=== PATIENT | female | born 1980 | race African-American/Black ===

== ENCOUNTER 2019-12-10 02:29 | Inpatient (IN) | payer BC ==
[~2019-12-10] VITALS: Ht 165.1 cm; Wt 71.2 kg
[2019-12-10 02:34] VITALS: Ht 165.1 cm; Wt 71.2 kg
--- NOTE | 2019-12-10 02:39 | NUR ---
PATIENT DENIES ANY POSSIBILITY OF . REPORTS SHE IS UNABLE TO PROVIDE URINE SAMPLE AT THIS TIME. REPORTING 10/10 PAIN AND REQUESTING PAIN MEDICATION. PT EDUCATED ON ALL POSSIBLE RISKS ASSOCIATED WITH PAIN MEDICATION IF THERE IS A CHANCE OF , PATIENT VERBALIZED UNDERSTANDING AND WOULD STILL LIKE TO BE MEDICATED FOR PAIN.
--- NOTE | 2019-12-10 02:41 | NUR ---
PATIENT BROUGHT IN BY AMBULANCE TO ED WITH C/C OF LLQ PAIN AND FLANK PAIN X3 HOURS. PER MEDIC, PATIENT HAD "KIDNEY STONE SURGERY" ON 12/04/2019. 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 PT GRIMACING, REPORTING SEVERE PAIN. PT REPORTS NAUSEA, RELATED TO PAIN, DENIES VOMITING. PATIENT REPORTS SHE HAS A STENT IN URETHRA AND URINATES "REGULARLY". PT HAS NO OTHER MEDICAL COMPLAINTS AT THIS TIME. PT IS AAOX4, RESP E/U, NAD NOTED. MSE COMPLETED BY DR. WOO.
--- NOTE | 2019-12-10 02:54 | NUR ---
PATIENT MEDICATED PER MD ORDER. PT VERBALIZED UNDERSTANDING OF MEDICATION PRIOR TO ADMINISTRATION.
[2019-12-10 02:59] LABS: BASOPHIL % 0.6 % (0-2); PLATELET COUNT 287 x10^3mcL (130-400); RED CELL DISTRIBUTION WIDTH 14.1 % (11.5-14.5)
[2019-12-10 04:17] LABS: CALCIUM 9.1 mg/dL (8.5-10.1); CARBON DIOXIDE 25.6 mmol/L (21-32); CHLORIDE SERUM 105 mmol/L (98-107); CREATININE SERUM 0.8 mg/dL (0.6-1.0); GFR1 > 60 mL/min; GLUCOSE SERUM 97 mg/dL (74-106); SODIUM SERUM 140 mmol/L (136-145)
--- NOTE | 2019-12-10 04:18 | NUR ---
PT MEDICATED PER MD ORDER. PT VERBALIZED UNDERSTANDING OF MEDICATIONS PRIOR TO ADMINISTRATION. CALL LIGHT IN REACH.
[2019-12-10 04:21] LABS: ALKALINE PHOSPHATASE 54 U/L (46-116); ALT/SGPT 27 U/L (14-59); AST/SGOT 18 U/L (15-37); BILIRUBIN TOTAL 0.16 mg/dL (0.20-1.00); TOTAL PROTEIN, SERUM 7.3 g/dL (6.4-8.2)
[2019-12-10 04:22] LABS: ALBUMIN 3.2 g/dL (3.4-5.0)
[2019-12-10 04:48] LABS: UA SPECIFIC GRAVITY 1.025 (1.005-1.035); microscopic required? YES; urine erythrocyte 3+ (NEGATIVE)
--- NOTE | 2019-12-10 05:49 | NUR ---
ASSISTED PT TO URINATE IN BEDSIDE COMMODE. PT RESTING IN GURNEY. AWAKE, A&OX4, RESP E/U. CALL LIGHT IN REACH.
--- NOTE | 2019-12-10 05:51 | NUR ---
PT MEDICATED PER MD ORDERS. PT VERBALIZED UNDERSTANDING OF MEDICATION PRIOR TO ADMINISTRATION.
--- NOTE | 2019-12-10 06:01 | NUR ---
US AT BEDSIDE.
--- NOTE | 2019-12-10 06:51 | NUR ---
5AM BLOOD DRAWN AND WALKED OVER TO LAB. RECEPTED BY [facility].
--- NOTE | 2019-12-10 07:07 | NUR ---
ATTEMPTED TO CALL REPORT TO RAMONA GELLER, UNAVAILABLE AT THIS TIME. WILL ATTEMPT TO CALL BACK.
--- NOTE | 2019-12-10 07:20 | NUR ---
PT RECEIVED FROM ED, REPORT GIVEN BY YIMI BEVERLY. PT ARRIVED ALONE BY ERIC. PT IS AAOX4, MED SURG PT. DENIES C/P, PRESSURE AND PALPITATIONS. RESP EVEN AND UNLABORED. LUNG SOUNDS CTA. ON R/A. NO COUGH OR SOB. PT HAS C/O ABDOMINAL PAIN THAT RESOLVES WITH PAIN MEDICATION. ABDOMEN SOFT, NONTENDER, NONDISTENDED. BOWEL SOUNDS ACTIVE X 4 QUADS. DENIES N/V, DIARRHEA AND CONSTIPATION. PT HAS L SIDED URINARY STENT PLACED, VOIDS FREELY. SKIN CDI. DISNTAL PULSES MODERATE. SKIN WARM. NO EDEMA. IV CATH TO RAC AND RW. FLUSHED AND PATENT. PT DENIES PAIN AT THIS TIME. PT ORIENTED TO ROOM AND CALL LIGHT. BED IN LOWEST POSITION. CALL LIGHT WITHIN REACH. WILL CONTINUE TO MONITOR.
--- NOTE | 2019-12-10 07:29 | NUR ---
REPORT GIVEN TO YIMI GREENE TO ASSUME CARE OF PT.
--- NOTE | 2019-12-10 09:52 | NUR ---
LEVAQUIN IVPB STARTED. PT SLEEPING, EASILY AWAKENED BY VERBAL STIMULI. CALL LIGHT WITHIN REACH.
[2019-12-10 11:12] VITALS: BP 145/80
--- NOTE | 2019-12-10 11:16 | NUR ---
DR. BALBUENA MET WITH PT AND DISCUSSED POC. DR. BALBUENA STATED THAT THE PT HAS A SMALL CYST ON HER OVARY THAT SHOULD NO BE CAUSING TORSION AND 10/10 PAIN. PT MAY POSSIBLE BE EXPERIECING PAIN DUE TO KIDNEY STONES. DR. BALBUENA STATED HE WILL NOT NEED TO SURGERY. IF PAIN IS RELIEVED THE STONE MAY HAVE PASSED.
[2019-12-10 12:02] VITALS: BP 136/87
--- NOTE | 2019-12-10 12:51 | NUR ---
DR. STILES MET WITH PT AND DISCUSSED POC. DR. STILES SUSPECTS THE URINARY STENT AND POSSIBLE THE CYST ON THE PT'S OVARY IN PROTRUDING ON THE BLADDER, EITHER MAY BE CAUSING THE PAIN. PT AGREED WITH POC.
--- NOTE | 2019-12-10 16:03 | NUR ---
PT RESTING WITH NO DISTRESS NOTED. RESP EVEN AND UNLABORED. AWAKENS EASILY TO VERBAL STIMULI. CALL LIGHT WITHIN REACH.
--- NOTE | 2019-12-10 17:00 | NUR ---
[facility]CO PO PRN GIVEN ORDERED FOR SHARP PAIN 08/07. EXTRA FLUIDS GIVEN. PT REPOSITIONED FOR COMFORT. CALL LIGHT WITHIN REACH.
[2019-12-10 17:09] VITALS: BP 125/73
--- NOTE | 2019-12-10 18:59 | NUR ---
RESP EVEN AND UNLABORED. NO DISTRESS NOTED. DENIES PAIN. IV CATH PATENT TO RAC. SITE WNL. WILL ENDORSE ALL CARE TO NOC RN.
--- NOTE | 2019-12-10 19:59 | NUR ---
pT aoX4 LAYING IN BED COMFORTABLY NO COMPLAINTS AT THIS TIME CALL LIGHT WITHIN REACH EDUCATED PT TO CALL RN IF PT IS IN PAIN WILL CONTINUE TO MONITOR PT
[2019-12-10 20:56] VITALS: BP 110/75
[2019-12-11 04:48] VITALS: BP 100/61
--- NOTE | 2019-12-11 06:16 | NUR ---
SLEPT WELL THROUGHOUT THE NIGHT VSS PRN MORPHINE X1 GIVEN WITH GOOD EFFECT NO OTHER COMPLAINTS AT THIS TIME WILL ENDORSE TO ONCOMING rn
[2019-12-11 07:40] VITALS: BP 117/76
--- NOTE | 2019-12-11 10:33 | NUR ---
PATIENT IS IN BED RESTING. PATIENT IS ALERT AND ORIENTED X4. PATIENT DENIES DISTRESS AND SHORTNESS OF BREATH. PATIENT IS HAVING PAIN IN THE AREA OF HER STENT PLACEMENT OF 6/10. PATIENT REFUSED PAIN MEDICATION AND STATED SHE WILLD EAL WITH THE PAIN. INSTRUCTED PATIENT ON THE OPTION OF PAIN MEDICATION AND TO CALL RN IF SHE WOULD LIKE PAIN MEDICATION. AM CARE NEEDS MET. PATIENT TOLERATED MEDICATIONS. BED IN LOW POSITION. CALL LIGHT IN REACH . TWO SIDE RAILS UP. WILL CONTINUE TO MONITOR PATIENT THROUGHOUT SHIFT.
[2019-12-11 12:07] VITALS: BP 128/75
[2019-12-11 13:07] VITALS: BP 128/75
--- NOTE | 2019-12-11 15:29 | NUR ---
DR. STILES'S OFFICE CALLED REGARDING PT'S CONCERN ABOUT BEING D/C SINCE STENTS HAD TO BE REMOVED. PER MD'S OFFICE PT TO F/U WITH OWN UROLOGIST AND SCHEDULE REMOVAL OF STENTS THROUGHT THEM. ATTENDING NURSE MADE AWARE.
--- NOTE | 2019-12-11 15:52 | NUR ---
Initial Nutrition Assessment: TERESA CONNORS 39F HR Dx: Abdominal pain r/o torsion PMHx: hydronephrosis, nephrolithiasis PSHx: Stent placement Labs: (12/09) total bilirubin 0.16L, Albumin 3.2L Meds: [place], Morphine, levaquin Diet: Regular PO intake since admission: No entry Ht: 165.1cm/65in Wt: 71.214kg/156.7lbs BMI: 26.1 Bed scale: 76.4kg/168.2lbs IBW: 56.82kg/125lbs %IBW: 125.3% ABW: 60kg UBW: 150lbs two weeks Age: 39 Food Allergies: NKFA per pt Edema: none noted Last BM: 12/09 Skin: no open wound noted Dell: 22 Per H and P (12/09), pt is a 39 yo female h/o nephrolithiasis s/p stent 6 days ago done at [facility]. She presented to the ED with intractable l lower quad pain, feels different from the kidney stone pain. She was seen and evaluated at the ED, US done showing adnexal cyst/ mass. She also had positive UA. With pain persisting, intractable she was admitted for further treatments. Pt was admitted with dx: Acute abd/pelvic pain, UTI, Nephrolithiasis, post stent, pelvic mass, ovarian cyst, torsion RD Note (12/11/2019) During visit, pt was sitting in bed and was on her laptop. Pt denied GI distress or chewing/swallowing difficulty. Pt reported fair appetite, but lunch tray was seen 20% finished per observation. Additionally, pt mentioned that her usual body weight was 150lbs two weeks ago, and her weight had been stable. Recommended ONS to aid PO intake, and pt was agreeable. Problem with: N/V/D/C: none per pt Problems with: Chewing: Swallowing: none per pt Current appetite: fair, but not as well per pt Recent wt change: none noted %wt change: none noted Height: 5'4" Vitamin/Supplement use: none per pt Special diet at home: none per pt Physical activity: none per pt Nutrition education given (specify specific nutrition education and handout given): not given at this time Food-drug interactions? Education given? n/a Estimated Nutritional Needs Based on adjusted body weight (60kg) Energy: 7890-0073 kcal/day (25-30 kcal/kg for maintenance) Protein: 48-60 g/day (0.8-1 g/kg for maintenance) Fluid: 0451-9534 mL/day (1 mL/kcal) Nutrition Diagnosis: 1. Inadequate energy and protein intake r/t poor PO intake a/e/b pt's lunch tray was seen untouched. Intervention 1. Continue with Regular diet 2. Recommend Ensure QD to aid PO intake. It will provide 350kcal and 20g protein. Monitor/Evaluate Goal: PO intake at least 75% of estimated needs Monitor: PO intake, Labs, GI function, ONS intake, Body weight F/U in 2-3 days as high risk 12/12-
--- NOTE | 2019-12-11 15:53 | NUR ---
1. Continue with Regular diet 2. Recommend Ensure QD to aid PO intake. It will provide 350kcal and 20g protein.
[2019-12-11 16:07] VITALS: BP 110/65
--- NOTE | 2019-12-11 18:12 | NUR ---
PATIENT IS IN BED RESTING. PATIENT IS ALERT AND ORIENTED X4. PATIENT DENIES PAIN, DISTRESS, AND SHORTNESS OF BREATH. ALL CARE NEEDS MET. IV REMOVED. DISCHARGE TEACHING COMPLETE. HOMEOSTASIS MAINTAINED AT PATIENTS BASELINE. BED IN LOW POSITION. CALL LIGHT IN REACH. WILL GIVE REPORT TO NIGHT NURSE IF PATIENTS RIDE HAS NOT ARRIVED FOR DISCHARGE BEFORE CHANGE OF SHIFT.
--- NOTE | 2019-12-11 18:56 | NUR ---
PATIENT DISCHARGED. ESCORTED BY [facility]ER.
== END 2019-12-11 18:59 | disposition home or self-care (01) | DRG 760 ==
LOC: ED 02:29 → MU 06:08
PROVIDERS: Emergency Medicine; ADMIT Internal Medicine; ATTEND Internal Medicine
DX: N83.519 Torsion of ovary and ovarian pedicle, unspecified side (principal); N39.0 Urinary tract infection, site not specified; Z87.442 Personal history of urinary calculi; Z95.828 Presence of other vascular implants and grafts; Z79.899 Other long term (current) drug therapy; Z79.891 Long term (current) use of opiate analgesic; Z79.01 Long term (current) use of anticoagulants; Z20.828 Contact with and (suspected) exposure to other viral communicable diseases
CPT/HCPCS: G0378; J0696; J1885; J1956; J2270; J2405; J7040; J7060; Q0092; Q9967